=== PATIENT | male | born 1965 | race Caucasian/White ===

== ENCOUNTER 2023-11-22 16:12 | Outpatient (RCR) | payer BC, OTHER, SELFPAY ==
--- NOTE | 2023-11-22 17:03 | OPREHPOC ---
Outpatient Therapy Plan of Care This is a Multidisciplinary Plan of Care that may contain components documented by all disciplines (PT, OT, and ST.) PT Problem 1 PT Problem #1 Knowledge Deficit PT Goal 1 Goal Patient to demonstrate independence with HEP Target Visit 6 PT Problem 2 PT Problem #2 Impaired Strength PT Goal 1 Goal Patient to demonstrate 4+/5 strength of the R LE to improve ability to transfer out of chair Target Visit 12 PT Problem 3 PT Problem #3 Impaired Functional Mobil PT Goal 1 Goal 1. Patient to complete 6 min walk test with no rest to return to community ambulation 2. Patient to demonstrate TUG in <24 seconds to decrease fall risk within the home 3. Patient to demonstrate 5TSTS in <15 seconds to decrease fall risk Target Visit 12
--- NOTE | 2023-11-22 17:03 | PTOPEVAL1 ---
Assessment and note entered by Sherie Leiva DPT Evaluation Information Assessment Status Evaluation Diagnosis weakness, functional decline Onset 10/26/23 Subjective Information Patient reports that he had a siezure on 10/26/23. Patient reports siezure is result of Glioblastoma . Since then he has had R sided weakness with LE more affected than UE. He was in a inpatient rehab facility and did notice some improvement. He reports he is using a walker at home but is still having difficulty. He also had difficulty with getting out of a chair and getting in and out of bed. Patient works at [employer] and would like to return but that is still TBD. He does have someone at home with him most times. Reported Pain Level Pain Score 0: Self Report Assessment PT Clinical Summary Mr. Goddard is a 58 year old male who presents to PT with R sided weakness and functional decline following stroke on 10/26/23. Patient demonstrate decreased R LE strength, impaired gait, and decreased balance impairing his ability to ambulate without AD, getting up out of a chair and returning to work. Patient would benefit from skilled PT to address impairments and return to PLOF. Plan of Care Interventions Electrical Stimulation,Gait Training,Hot Pack/Cold Pack,Manual Therapy,Neuro Re-education,Patient/ Caregiver Educati,Therapeutic Activities, Therapeutic Exercise PT Services Indicated Yes Treatment Frequency and 3x weekly for 12 visits Duration These treatments will address the objective and functional deficits as defined above. The patient will be advanced safely and appropriately in order for the patient to progress towards his/her prior level of function. Additional exercises will be introduced and as well as a comprehensive home exercise program upon discharge, if needed, ?to ensure carryover of functional gains achieved in the clinic. This treatment plan has been reviewed and agreement upon by the patient.
--- NOTE | 2023-11-22 17:05 | PTOPEVAL1 ---
Assessment and note entered by Sherie Leiva DPT Evaluation Information Assessment Status Evaluation Diagnosis weakness, functional decline Onset 10/26/23 Subjective Information Patient reports that he had a siezure on 10/26/23. Patient reports siezure is result of Glioblastoma . Since then he has had R sided weakness with LE more affected than UE. He was in a inpatient rehab facility and did notice some improvement. He reports he is using a walker at home but is still having difficulty. He also had difficulty with getting out of a chair and getting in and out of bed. Patient works at [employer] and would like to return but that is still TBD. He does have someone at home with him most times. Reported Pain Level Pain Score 0: Self Report Assessment PT Clinical Summary Mr. Goddard is a 58 year old male who presents to PT with R sided weakness and functional decline following siezure on 10/26/23. Patient demonstrate decreased R LE strength, impaired gait, and decreased balance impairing his ability to ambulate without AD, getting up out of a chair and returning to work. Patient would benefit from skilled PT to address impairments and return to PLOF. Plan of Care Interventions Electrical Stimulation,Gait Training,Hot Pack/Cold Pack,Manual Therapy,Neuro Re-education,Patient/ Caregiver Educati,Therapeutic Activities, Therapeutic Exercise PT Services Indicated Yes Treatment Frequency and 3x weekly for 12 visits Duration These treatments will address the objective and functional deficits as defined above. The patient will be advanced safely and appropriately in order for the patient to progress towards his/her prior level of function. Additional exercises will be introduced and as well as a comprehensive home exercise program upon discharge, if needed, ?to ensure carryover of functional gains achieved in the clinic. This treatment plan has been reviewed and agreement upon by the patient.
--- NOTE | 2023-12-15 17:19 | OPREHPOC ---
Outpatient Therapy Plan of Care This is a Multidisciplinary Plan of Care that may contain components documented by all disciplines (PT, OT, and ST.) PT Problem 1 PT Problem #1 Knowledge Deficit PT Goal 1 Goal Patient to demonstrate independence with HEP Target Visit 6 Progress Met PT Problem 2 PT Problem #2 Impaired Strength PT Goal 1 Goal Patient to demonstrate 4+/5 strength of the R LE to improve ability to transfer out of chair Target Visit 20 Progress Partially Met Comment continue PT Problem 3 PT Problem #3 Impaired Functional Mobil PT Goal 1 Goal 1. Patient to complete 6 min walk test with no rest to return to community ambulation 2. Patient to demonstrate TUG in <24 seconds to decrease fall risk within the home 3. Patient to demonstrate 5TSTS in <15 seconds to decrease fall risk New Goal 4. Patient to achieve prone to quadruped independently to improve safety. Target Visit 20 Progress Partially Met Comment progress towards, continue
--- NOTE | 2023-12-15 17:20 | PTOPPROG ---
Assessment and note entered by Tammy Servin, PT Evaluation Information Assessment Status Progress Diagnosis weakness, functional decline Onset 10/26/23 Subjective Information Artur reports that he is noting improved mobility and improved strength since initiating PT. He is able to perform all ADLs independently but is not able to walk without an AD or drive due to ongoing right sided weakness. He will see his neurologist again on 12/28/23. Assessment PT Clinical Summary Artur Goddard has completed 10 skilled PT visits for weakness and functional decline following a seizure on 10/26/23. He is noting improved mobility and strength since initiating PT. He is able to perform ADLs independently but still has to use a walker for ambulation. He demonstrates improved times on the TUG and 5 time sit to stand tests however, he still demonstrates a high fall risk. He also demonstrates improved right LE strength but still has functional weakness. He needs moderate assist to get into quadruped which poses a safety risk should he fall while alone. He was able to walk 575 feet during the 6 minute walk test. He will continue to benefit from skilled PT to further address ongoing limitations. Plan of Care Interventions Neuro Re-education,Patient/Caregiver Educati, Therapeutic Activities,Therapeutic Exercise PT Services Indicated Yes Treatment Frequency and 3 times a week for 10 visits Duration These treatments will address the objective and functional deficits as defined above. The patient will be advanced safely and appropriately in order for the patient to progress towards his/her prior level of function. Additional exercises will be introduced and as well as a comprehensive home exercise program upon discharge, if needed, ?to ensure carryover of functional gains achieved in the clinic. This treatment plan has been reviewed and agreement upon by the patient.
--- NOTE | 2023-12-23 15:12 | PCPTNOTE ---
Patient cancelled session due to weather.
--- NOTE | 2024-01-13 17:06 | OPREHPOC ---
Outpatient Therapy Plan of Care This is a Multidisciplinary Plan of Care that may contain components documented by all disciplines (PT, OT, and ST.) PT Problem 1 PT Problem #1 Knowledge Deficit PT Goal 1 Goal Patient to demonstrate independence with HEP Target Visit 6 Progress Met PT Problem 2 PT Problem #2 Impaired Strength PT Goal 1 Goal Patient to demonstrate 4+/5 strength of the R LE to improve ability to transfer out of chair Target Visit 24 Progress Partially Met Comment continue PT Problem 3 PT Problem #3 Impaired Functional Mobil PT Goal 1 Goal 1. Patient to complete 6 min walk test with no rest to return to community ambulation 2. Patient to demonstrate TUG in <24 seconds to decrease fall risk within the home 3. Patient to demonstrate 5TSTS in <15 seconds to decrease fall risk New Goal 4. Patient to achieve prone to quadruped independently to improve safety. Target Visit 24 Progress Partially Met Comment progress towards, continue
--- NOTE | 2024-01-13 17:07 | PTOPREEVAL ---
Assessment and note entered by Sherie Garvey DPT Evaluation Information Assessment Status Re-evaluation Diagnosis weakness, functional decline Onset 10/26/23 Subjective Information Artur reports that he feels he is about the same. states he has not noticed any worsening either. he reports has been navigating around his home more. he reports he still has some instance of toe drag . Reported Pain Level Pain Score 0: Self Report Pain Score 0: Self Report Assessment PT Clinical Summary Mr. Goddard has attended 20 visits of skilled PT from 11/22/23-01/13/24. He is making good progress at this time but continues to demonstrate as a high fall risk. He has improved ability to rise from chair with improved body mechanics and safety. He continues to demonstrate occasional R toe drag with ambulation leading to increased fall risk within the home. He would benefit from continued skilled PT to maintain functional progress and improve gait to decrease toe drag and decrease fall risk. Plan of Care Interventions Neuro Re-education,Patient/Caregiver Educati, Therapeutic Activities,Therapeutic Exercise PT Services Indicated Yes Treatment Frequency and continue 1x weekly for 4 visits Duration These treatments will address the objective and functional deficits as defined above. The patient will be advanced safely and appropriately in order for the patient to progress towards his/her prior level of function. Additional exercises will be introduced and as well as a comprehensive home exercise program upon discharge, if needed, ?to ensure carryover of functional gains achieved in the clinic. This treatment plan has been reviewed and agreement upon by the patient.
--- NOTE | 2024-02-07 17:17 | OPREHPOC ---
Outpatient Therapy Plan of Care This is a Multidisciplinary Plan of Care that may contain components documented by all disciplines (PT, OT, and ST.) PT Problem 1 PT Problem #1 Knowledge Deficit PT Goal 1 Goal Patient to demonstrate independence with HEP Target Visit 6 Progress Met PT Problem 2 PT Problem #2 Impaired Strength PT Goal 1 Goal Patient to demonstrate 4+/5 strength of the R LE to improve ability to transfer out of chair Target Visit 24 Progress Not Met Comment . PT Problem 3 PT Problem #3 Impaired Functional Mobil PT Goal 1 Goal 1. Patient to complete 6 min walk test with no rest to return to community ambulation met 2. Patient to demonstrate TUG in <24 seconds to decrease fall risk within the home 3. Patient to demonstrate 5TSTS in <15 seconds to decrease fall risk New Goal 4. Patient to achieve prone to quadruped independently to improve safety. met Target Visit 24 Progress Partially Met Comment .
--- NOTE | 2024-02-07 17:17 | PTOPDC ---
Assessment and note entered by Sherie Garvey DPT Evaluation Information Assessment Status Discharge Diagnosis weakness, functional decline Onset 10/26/23 Subjective Information Mr. Goddard reports no falls. He reports he has been able to maintain all progress with just 1x weekly PT. He reports he is independent with HEP. He reports he does not need assistance for house hold mobility. Reported Pain Level Pain Score 0: Self Report Assessment PT Clinical Summary Mr. Goddard attended 24 visits of skilled PT from -02/07/24 and partially met all goals. He has improved ambulation distance during 6 min walk test and improved TUG and 5TSTS times indicating decrease in fall risk. He reports no falls and is able to complete house hold mobility without assistance. He is independent with HEP and is appropriate for DC at this time. Plan of Care PT Services Indicated No
== END 2024-02-07 20:00 | disposition home or self-care (01) ==
LOC: CHSPT 16:12
PROVIDERS: PCP Internal Medicine; Visit Provider Internal Medicine
DX: C71.9 Malignant neoplasm of brain, unspecified (principal); G40.909 Epilepsy, unspecified, not intractable, without status epilepticus; G81.91 Hemiplegia, unspecified affecting right dominant side; R53.81 Other malaise
CPT/HCPCS: 97110; 97112; 97116; 97150; 97161; 97530; 97750